=== PATIENT | female | born 1990 | race Caucasian/White ===

== ENCOUNTER → 2019-11-19 | Outpatient (CLI) | payer OTHER | LOC: HYPER 08:59 | PROVIDERS: ATTEND Emergency Medicine | DX: O90.0 Disruption of cesarean delivery wound (principal); Z90.89 Acquired absence of other organs ==

== ENCOUNTER → 2019-11-26 | Outpatient (CLI) | payer OTHER | LOC: HYPER 14:00 | PROVIDERS: ATTEND Emergency Medicine | DX: T81.31XD Disruption of external operation (surgical) wound, not elsewhere classified, subsequent encounter (principal); Y83.8 Other surgical procedures as the cause of abnormal reaction of the patient, or of later complication, without mention of misadventure at the time of the procedure ==